=== PATIENT | male | born 1935 | race Caucasian/White ===

== ENCOUNTER 2019-02-15 09:03 | Inpatient (IN) | payer MEDICARE, OTHER ==
[~2019-02-15] VITALS: Ht 167.6 cm; Wt 72.0 kg
[~2019-02-15 09:03] MED LIST: ASPI-611 PO; BUPR150T8 PO; ERGO500014 PO; HYDR12.5 PO; MULT-645 PO; NAPR220C15 PO; OLME40TA13 PO; VITE1000C PO
--- NOTE | 2019-02-15 10:13 | NUR ---
PATIENT STATES HE WAS REFINISHING FURNITURE AND THINKS HE GOT A PIECE OF METAL IN HIS RIGHT INDEX FINGER. REDNESS AND SWELLING NOTED TO BASE OF RIGHT INDEX FINGER. NO ACTIVE DRAINAGE NOTED AT THIS TIME.
[2019-02-15] MEDS ORDERED: vancomycin/NS 1 GM ADD-VANTAGE 250 ML IV ONE (10:45)
[2019-02-15] MEDS ORDERED: LIDOcaine 1% w/epiNEPHrine 1:200,000 30ml vial IM ONE (10:50)
[2019-02-15] MEDS ORDERED: TETanus/Pertussis (Acell)/Diphther VAC/PF (Tdap-Adult) 0.5ml syringe IM ONE (10:50)
[2019-02-15 11:44] LABS: BASOPHILS % (AUTO) 0.5 % (0-1); EOSINOPHILS % (AUTO) 0.4 % (0-6); HEMOGLOBIN 15.1 g/dl (14.0-17.9); LYMPHOCYTES # (AUTO) 0.8 X10'3 (1.1-4.8); MEAN CORPUSCULAR HEMOGLOBIN 32.6 PG (27.0-31.0); MEAN CORPUSCULAR HGB CONC 34.3 g/dL (33.0-36.5); MEAN CORPUSCULAR VOLUME 95.1 FL (78-98); MONOCYTES # (AUTO) 0.7 X10'3 (0-0.9); MONOCYTES % (AUTO) 8.8 % (2-12); NEUTROPHILS # (AUTO) 6.6 X10'3 (1.8-7.7); NEUTROPHILS % (AUTO) 80.3 % (42-75); PLATELET COUNT 201 X10'3 (140-440); RED BLOOD COUNT 4.63 X10'6 (4.70-6.10); RED CELL DISTRIBUTION WIDTH 12.8 % (11.5-14.5); WHITE BLOOD COUNT 8.2 X10'3 (4.5-11.0)
[2019-02-15 11:55] LABS: ALANINE AMINOTRANSFERASE 26 U/L (12-78); ALBUMIN 3.7 G/DL (3.4-5.0); ALBUMIN/GLOBULIN RATIO 1.1 (1.1-1.5); ALKALINE PHOSPHATASE 69 IU/L (46-116); ANION GAP 7 (8-16); ASPARTATE AMINO TRANSFERASE 21 U/L (10-37); BILIRUBIN,TOTAL 0.5 MG/DL (0.1-1.0); BLOOD UREA NITROGEN 19 MG/DL (7-18); BUN/CREATININE RATIO 23.8 (5.4-32.0); CALCIUM 8.7 MG/DL (8.5-10.1); CHLORIDE 102 MMOL/L (99-107); GLUCOSE 113 MG/DL (70-104); POTASSIUM 4.2 MMOL/L (3.5-5.1); SODIUM 136 MMOL/L (135-145); TOTAL CARBON DIOXIDE 26.8 MMOL/L (24-32); eGFR > 90 ML/MIN
[2019-02-15] MEDS ORDERED: potassium CL 10mEq/100ml bag 100 ML IV PRN ×2 (13:30)
[2019-02-15] MEDS ORDERED: potassium Cl 20 mEq SR tablet PO PRN ×2 (13:30)
[2019-02-15] MEDS ORDERED: magnesium 2GM in 50ml NS 50 ML IV PRN (13:30)
[2019-02-15] MEDS ORDERED: mag hydrox/Alum hydrox/simeth 30ml oral suspension PO PRN (13:30)
[2019-02-15] MEDS ORDERED: ondansetron/PF 4mg/2ml inj IV PRN (13:30)
[2019-02-15] MEDS ORDERED: morphine 2 MG/ML inj. syringe IV PRN (13:30)
[2019-02-15] MEDS ORDERED: magnesium Cl slow-release 64mg tablet PO PRN (13:30)
[2019-02-15] MEDS ORDERED: magnesium 4gm in 100ml NS 100 ML IV PRN (13:30)
[2019-02-15] MEDS ORDERED: acetaminophen 325mg tablet PO PRN ×2 (13:30)
[2019-02-15] MEDS ORDERED: PRAV20TA4 PO (13:51)
[2019-02-15] MEDS ORDERED: BUPR150T8 PO (13:51)
[2019-02-15] MEDS ORDERED: MAGN400C PO (13:51)
[2019-02-15] MEDS ORDERED: ASPI81TA52 PO (13:51)
[2019-02-15] MEDS ORDERED: MONT10TA24 PO (13:51)
[2019-02-15] MEDS ORDERED: AMLO5TAB4 PO (13:51)
[2019-02-15] MEDS ORDERED: OLME40TA13 PO (13:51)
--- NOTE | 2019-02-15 14:37 | NUR ---
Patient in room . I have received report from Joy STOKES, in ED and had the opportunity to ask questions and assume patient care.
[2019-02-15 15:15] VITALS: BP 169/78
--- NOTE | 2019-02-15 15:16 | NUR ---
Pt arrived on the floor. Tucked in, provided comfort measures. No c/o pain at this time. Pt is alert, oriented and in good spirits.
[2019-02-15] MEDS: normal saline 1000ml 1,000 ML IV SCH (15:45)
[2019-02-15] MEDS: HYDROcodone/acetaminophen 5mg/325mg tablet PO PRN ×2 (15:45→20:24)
[2019-02-15 18:00] VITALS: BP 158/66
--- NOTE | 2019-02-15 18:20 | NUR ---
Problems reprioritized. Patient report given, questions answered & plan of care reviewed with Barb.
--- NOTE | 2019-02-15 18:29 | NUR ---
Patient in room ORTHO 4013. I have received report from KIKE Delgadillo and had the opportunity to ask questions and assume patient care.
[2019-02-15] MEDS: heparin, porcine 5000 units/ml vial SQ SCH (20:23)
[2019-02-15] MEDS: docusate sod 100mg capsule PO SCH (20:24)
[2019-02-15] MEDS ORDERED: temazepam 15mg capsule PO PRN (21:00)
[2019-02-15 22:00] VITALS: BP 145/71
[2019-02-15] MEDS: vancomycin/NS 1 GM ADD-VANTAGE 250 ML IV SCH (22:53)
[2019-02-16] MEDS: HYDROcodone/acetaminophen 5mg/325mg tablet PO PRN ×4 (03:42→20:38)
--- NOTE | 2019-02-16 06:25 | NUR ---
Problems reprioritized. Patient report given, questions answered & plan of care reviewed with KIKE Kirkland.
[2019-02-16 06:53] LABS: BASOPHILS # (AUTO) 0.1 X10'3 (0-0.2); BASOPHILS % (AUTO) 0.8 % (0-1); EOSINOPHILS # (AUTO) 0.1 X10'3 (0-0.9); EOSINOPHILS % (AUTO) 0.9 % (0-6); HEMATOCRIT 40.3 % (42.0-52.0); HEMOGLOBIN 13.8 g/dl (14.0-17.9); LYMPHOCYTES # (AUTO) 1.1 X10'3 (1.1-4.8); LYMPHOCYTES % (AUTO) 16.5 % (21-51); MEAN CORPUSCULAR HEMOGLOBIN 33.1 PG (27.0-31.0); MEAN CORPUSCULAR HGB CONC 34.3 g/dL (33.0-36.5); MEAN CORPUSCULAR VOLUME 96.6 FL (78-98); MEAN PLATELET VOLUME 8.7 FL (7.4-10.4); MONOCYTES # (AUTO) 0.7 X10'3 (0-0.9); MONOCYTES % (AUTO) 9.9 % (2-12); NEUTROPHILS # (AUTO) 4.7 X10'3 (1.8-7.7); NEUTROPHILS % (AUTO) 71.9 % (42-75); PLATELET COUNT 174 X10'3 (140-440); RED BLOOD COUNT 4.17 X10'6 (4.70-6.10); WHITE BLOOD COUNT 6.6 X10'3 (4.5-11.0)
[2019-02-16 06:59] VITALS: BP 155/74
[2019-02-16 07:00] LABS: ALBUMIN 3.1 G/DL (3.4-5.0); ANION GAP 6 (8-16); BLOOD UREA NITROGEN 15 MG/DL (7-18); BUN/CREATININE RATIO 17.9 (5.4-32.0); CALCIUM 8.3 MG/DL (8.5-10.1); CHLORIDE 105 MMOL/L (99-107); CREATININE 0.84 MG/DL (0.60-1.10); GLUCOSE 94 MG/DL (70-104); MAGNESIUM 1.8 MG/DL (1.5-2.4); SODIUM 139 MMOL/L (135-145); TOTAL CARBON DIOXIDE 27.8 MMOL/L (24-32); eGFR 88 ML/MIN
[2019-02-16] MEDS: K and/or MAG REPLACEMENT MC SCH (07:21)
[2019-02-16] MEDS: docusate sod 100mg capsule PO SCH ×2 (07:34→19:56)
[2019-02-16] MEDS: losartan 50mg tablet PO SCH (07:34)
[2019-02-16] MEDS: HYDROchlorothiazide 12.5mg capsule PO SCH (07:34)
[2019-02-16] MEDS: heparin, porcine 5000 units/ml vial SQ SCH ×2 (07:34→19:56)
[2019-02-16] MEDS: normal saline 1000ml 1,000 ML IV SCH ×2 (09:27→21:05)
[2019-02-16 10:00] VITALS: BP 142/68
[2019-02-16] MEDS: buPROPion SR 150mg tablet PO SCH (10:59)
[2019-02-16] MEDS: montelukast 10mg tablet PO SCH (10:59)
[2019-02-16] MEDS: magnesium oxide 400mg tablet PO SCH (11:00)
[2019-02-16] MEDS: pravastatin 40mg tablet PO SCH (11:01)
[2019-02-16] MEDS: vancomycin/NS 1 GM ADD-VANTAGE 250 ML IV SCH ×2 (11:33→23:02)
[2019-02-16] MEDS ORDERED: ringers solution, lacted 1,000 ML IV ONE (16:22)
[2019-02-16 22:00] VITALS: BP 116/83
[2019-02-16] MEDS ORDERED: VANCOMYCIN LEVEL IV ONE (22:30)
[2019-02-17] VITALS (15 sets, daily range): BP systolic 126–175; BP diastolic 62–99
--- NOTE | 2019-02-17 06:13 | NUR ---
Problems reprioritized. Patient report given, questions answered & plan of care reviewed with Mraita STOKES.
[2019-02-17 06:42] LABS: BASOPHILS % (AUTO) 0.8 % (0-1); EOSINOPHILS # (AUTO) 0.1 X10'3 (0-0.9); EOSINOPHILS % (AUTO) 1.7 % (0-6); HEMATOCRIT 39.6 % (42.0-52.0); HEMOGLOBIN 13.5 g/dl (14.0-17.9); LYMPHOCYTES # (AUTO) 0.8 X10'3 (1.1-4.8); LYMPHOCYTES % (AUTO) 15.1 % (21-51); MEAN CORPUSCULAR HEMOGLOBIN 32.6 PG (27.0-31.0); MEAN CORPUSCULAR HGB CONC 34.1 g/dL (33.0-36.5); MEAN CORPUSCULAR VOLUME 95.8 FL (78-98); MEAN PLATELET VOLUME 8.3 FL (7.4-10.4); MONOCYTES # (AUTO) 0.6 X10'3 (0-0.9); MONOCYTES % (AUTO) 10.5 % (2-12); NEUTROPHILS % (AUTO) 71.9 % (42-75); PLATELET COUNT 164 X10'3 (140-440); RED BLOOD COUNT 4.14 X10'6 (4.70-6.10); RED CELL DISTRIBUTION WIDTH 13.3 % (11.5-14.5); WHITE BLOOD COUNT 5.6 X10'3 (4.5-11.0)
[2019-02-17 07:19] LABS: ALBUMIN 3.1 G/DL (3.4-5.0); ANION GAP 7 (8-16); BLOOD UREA NITROGEN 15 MG/DL (7-18); BUN/CREATININE RATIO 18.1 (5.4-32.0); CALCIUM 8.3 MG/DL (8.5-10.1); CHLORIDE 105 MMOL/L (99-107); CREATININE 0.83 MG/DL (0.60-1.10); GLUCOSE 89 MG/DL (70-104); MAGNESIUM 1.5 MG/DL (1.5-2.4); POTASSIUM 3.7 MMOL/L (3.5-5.1); SODIUM 140 MMOL/L (135-145); TOTAL CARBON DIOXIDE 27.7 MMOL/L (24-32); eGFR 89 ML/MIN
[2019-02-17] MEDS: buPROPion SR 150mg tablet PO SCH (07:37)
[2019-02-17] MEDS: HYDROcodone/acetaminophen 5mg/325mg tablet PO PRN (07:37)
[2019-02-17] MEDS: pravastatin 40mg tablet PO SCH (07:37)
[2019-02-17] MEDS: docusate sod 100mg capsule PO SCH ×2 (07:37→19:25)
[2019-02-17] MEDS: montelukast 10mg tablet PO SCH (07:37)
[2019-02-17] MEDS: losartan 50mg tablet PO SCH (07:38)
[2019-02-17] MEDS: HYDROchlorothiazide 12.5mg capsule PO SCH (07:38)
[2019-02-17] MEDS: heparin, porcine 5000 units/ml vial SQ SCH ×2 (07:42→19:25)
[2019-02-17] MEDS: K and/or MAG REPLACEMENT MC SCH (07:42)
[2019-02-17] MEDS: magnesium oxide 400mg tablet PO SCH (07:42)
[2019-02-17] MEDS: vancomycin/NS 1 GM ADD-VANTAGE 250 ML IV SCH ×2 (11:06→22:11)
[2019-02-17] MEDS ORDERED: MIDAZolam 5mg/5ml vial ONE (14:08)
[2019-02-17] MEDS ORDERED: ringers solution, lacted 1,000 ML IV SCH (14:30)
[2019-02-17] MEDS ORDERED: labetalol 20mg/4ml (5mg/ml) syringe IV PRN (14:30)
[2019-02-17] MEDS ORDERED: fentaNYL/PF 50MCG/1 ML 2ML syringe IV PRN ×2 (14:30)
[2019-02-17] MEDS ORDERED: ondansetron/PF 4mg/2ml inj IV PRN (14:30)
[2019-02-17] MEDS ORDERED: morphine 4 MG/ML inj SYRINge IV PRN ×2 (14:30)
[2019-02-17] MEDS ORDERED: hydrALAZINE 20mg/ml inj. IV PRN (14:30)
--- NOTE | 2019-02-17 14:43 | NUR ---
Received from OR via ORTHO BED WITH NEAUGUSTUS, accompanied by Anesthesiologist JAI and report given by Anesthesiolgist. PATIENT WITH VSS. 20G PIV IN LEFT UE RUNNING NS AT 100. ANALIA AND GAUZE DRESSING TO RIGHT HAND AND INDEX FINGER. NO DRAINAGE PRESENT. VSS. Addendum: 02/17/19 at 1455 by Nash Burton RN, RN Amended: Links added.
--- NOTE | 2019-02-17 15:16 | NUR ---
PACU BG OF 74. ADMINISTERED ONE APPLE JUICE. PATIENT IS NOT DIABETIC. Addendum: 02/17/19 at 1539 by Nash Burton RN, RN Amended: Links added.
--- NOTE | 2019-02-17 15:23 | NUR ---
ALL CRITERIA FOR TRANSFER TO THE FLOOR HAS BEEN ACHIEVED. VSS. BED LOW, CALL LIGHT AND VS. SET IN PLACE. RN PRESENT TO ACCEPT CARE. PATIENT RESTING COMFORTABLY IN BED. BELONGINGS SENT WITH PATIENT. DRESSINGS CDI. FAMILY IN BEDROOM AWAITING PATIENT. PCT PRESENT TO ASSIST IN SET UP. Addendum: 02/17/19 at 1539 by Nash Burton RN RN Amended: Links added.
[2019-02-17] MEDS: normal saline 1000ml 1,000 ML IV SCH (19:35)
[2019-02-18 02:00] VITALS: BP 156/63
[2019-02-18] MEDS: HYDROcodone/acetaminophen 5mg/325mg tablet PO PRN ×2 (04:32→08:26)
[2019-02-18 06:05] LABS: BASOPHILS % (AUTO) 0.7 % (0-1); EOSINOPHILS % (AUTO) 0.6 % (0-6); HEMATOCRIT 40.2 % (42.0-52.0); HEMOGLOBIN 13.9 g/dl (14.0-17.9); LYMPHOCYTES # (AUTO) 0.8 X10'3 (1.1-4.8); LYMPHOCYTES % (AUTO) 12.9 % (21-51); MEAN CORPUSCULAR HGB CONC 34.5 g/dL (33.0-36.5); MEAN CORPUSCULAR VOLUME 95.6 FL (78-98); MEAN PLATELET VOLUME 8.1 FL (7.4-10.4); MONOCYTES # (AUTO) 0.7 X10'3 (0-0.9); MONOCYTES % (AUTO) 11.4 % (2-12); NEUTROPHILS # (AUTO) 4.5 X10'3 (1.8-7.7); NEUTROPHILS % (AUTO) 74.4 % (42-75); PLATELET COUNT 182 X10'3 (140-440); RED BLOOD COUNT 4.21 X10'6 (4.70-6.10)
--- NOTE | 2019-02-18 06:18 | NUR ---
Problems reprioritized. Patient report given, questions answered & plan of care reviewed with Marita STOKES.
[2019-02-18 06:23] LABS: ALBUMIN 3.3 G/DL (3.4-5.0); ANION GAP 9 (8-16); BLOOD UREA NITROGEN 13 MG/DL (7-18); CALCIUM 8.7 MG/DL (8.5-10.1); CHLORIDE 103 MMOL/L (99-107); CREATININE 0.93 MG/DL (0.60-1.10); GLUCOSE 106 MG/DL (70-104); MAGNESIUM 1.6 MG/DL (1.5-2.4); POTASSIUM 3.9 MMOL/L (3.5-5.1); SODIUM 138 MMOL/L (135-145); TOTAL CARBON DIOXIDE 26.1 MMOL/L (24-32); eGFR 78 ML/MIN
[2019-02-18 07:26] VITALS: BP 162/78
[2019-02-18] MEDS: K and/or MAG REPLACEMENT MC SCH (08:00)
[2019-02-18] MEDS: montelukast 10mg tablet PO SCH (08:26)
[2019-02-18] MEDS: pravastatin 40mg tablet PO SCH (08:26)
[2019-02-18] MEDS: buPROPion SR 150mg tablet PO SCH (08:26)
[2019-02-18] MEDS: docusate sod 100mg capsule PO SCH (08:26)
[2019-02-18] MEDS: HYDROchlorothiazide 12.5mg capsule PO SCH (08:26)
[2019-02-18] MEDS: magnesium oxide 400mg tablet PO SCH (08:26)
[2019-02-18] MEDS: heparin, porcine 5000 units/ml vial SQ SCH (08:27)
[2019-02-18] MEDS: losartan 50mg tablet PO SCH (08:27)
[2019-02-18 10:53] VITALS: BP 162/67
[2019-02-18] MEDS ORDERED: VANCOmycin 1250MG/NS 250ml Bag 250 ML IV SCH (11:00)
[2019-02-18] MEDS ORDERED: DOXY100C2 PO (11:28)
[2019-02-19] MEDS ORDERED: VANCOMYCIN LEVEL IV ONE (22:30)
== END 2019-02-18 13:15 | disposition hospice, home (50) | DRG 580 ==
LOC: ER 09:03 → ORTHO 4S 15:08 → CMPBEDREQ 02-17 19:57
PROVIDERS: ADMIT Internal Medicine; ATTEND Internal Medicine
PROC: 0JBJ0ZZ Excision of Right Hand Subcutaneous Tissue and Fascia, Open Approach (ICD-10-PCS; 2019-02-17)
PROC: 0JCJ0ZZ Extirpation of Matter from Right Hand Subcutaneous Tissue and Fascia, Open Approach (ICD-10-PCS; principal; 2019-02-17 14:12)
DX: S60.450A Superficial foreign body of right index finger, initial encounter (principal); L02.511 Cutaneous abscess of right hand; G89.29 Other chronic pain; I10 Essential (primary) hypertension; M54.5 Low back pain; L08.9 Local infection of the skin and subcutaneous tissue, unspecified; X58.XXXA Exposure to other specified factors, initial encounter; I25.10 Atherosclerotic heart disease of native coronary artery without angina pectoris; Z95.1 Presence of aortocoronary bypass graft; Z79.82 Long term (current) use of aspirin; Z79.899 Other long term (current) drug therapy; Y93.89 Activity, other specified; Y92.89 Other specified places as the place of occurrence of the external cause; Y99.8 Other external cause status
CPT/HCPCS: 36415; 73140; 76000; 80048; 80053; 80202; 82948; 83605; 83735; 85025; 87040; 87070; 87075; 87077; 87081; 87186; 90471; 96365; 99285; A6222; A6449; A7000; G0378; J1644; J2250; J2270; J3370; J7030; J7120

== ENCOUNTER 2019-03-04 15:51 | Observation (INO) | payer MEDICARE, OTHER ==
[~2019-03-04] VITALS: Ht 170.2 cm; Wt 73.8 kg
[~2019-03-04 15:51] MED LIST changes: +AMLO5TAB4 PO; -ASPI-611 PO; +ASPI81TA52 PO; +DOXY100C2 PO; -ERGO500014 PO; -HYDR12.5 PO; +MAGN400C PO; +MONT10TA24 PO; -MULT-645 PO; -NAPR220C15 PO; +PRAV20TA4 PO; -VITE1000C PO
[2019-03-04 16:24] LABS: BASOPHILS % (AUTO) 0.3 % (0-1); EOSINOPHILS % (AUTO) 0.4 % (0-6); HEMATOCRIT 44.5 % (42.0-52.0); HEMOGLOBIN 14.9 g/dl (14.0-17.9); LYMPHOCYTES # (AUTO) 0.7 X10'3 (1.1-4.8); LYMPHOCYTES % (AUTO) 6.8 % (21-51); MEAN CORPUSCULAR HEMOGLOBIN 32.8 PG (27.0-31.0); MEAN CORPUSCULAR HGB CONC 33.5 g/dL (33.0-36.5); MEAN CORPUSCULAR VOLUME 97.8 FL (78-98); MONOCYTES # (AUTO) 1.1 X10'3 (0-0.9); MONOCYTES % (AUTO) 10.3 % (2-12); NEUTROPHILS # (AUTO) 8.6 X10'3 (1.8-7.7); NEUTROPHILS % (AUTO) 82.2 % (42-75); PLATELET COUNT 254 X10'3 (140-440); RED BLOOD COUNT 4.55 X10'6 (4.70-6.10); RED CELL DISTRIBUTION WIDTH 13.3 % (11.5-14.5); WHITE BLOOD COUNT 10.4 X10'3 (4.5-11.0)
[2019-03-04] MEDS ORDERED: normal saline 1000ML IV soln IVB ONE (16:25)
[2019-03-04 16:29] LABS: PARTIAL THROMBOPLASTIN TIME 26 SECONDS (22-32)
[2019-03-04 16:32] LABS: ALANINE AMINOTRANSFERASE 25 U/L (12-78); ALBUMIN 3.6 G/DL (3.4-5.0); ALBUMIN/GLOBULIN RATIO 1.1 (1.1-1.5); ALKALINE PHOSPHATASE 65 IU/L (46-116); ANION GAP 11 (8-16); ASPARTATE AMINO TRANSFERASE 22 U/L (10-37); BILIRUBIN,TOTAL 0.5 MG/DL (0.1-1.0); BLOOD UREA NITROGEN 19 MG/DL (7-18); BUN/CREATININE RATIO 14.6 (5.4-32.0); CALCIUM 8.4 MG/DL (8.5-10.1); CHLORIDE 97 MMOL/L (99-107); GLUCOSE 99 MG/DL (70-104); POTASSIUM 3.9 MMOL/L (3.5-5.1); SODIUM 136 MMOL/L (135-145); TOTAL CARBON DIOXIDE 28.1 MMOL/L (24-32); TOTAL PROTEIN 6.9 G/DL (6.4-8.2); eGFR 53 ML/MIN
--- NOTE | 2019-03-04 17:32 | NUR ---
pharmacist at bedside going over medication.pt family at bedside.
[2019-03-04] MEDS ORDERED: MULT-933 PO (17:36)
[2019-03-04] MEDS ORDERED: CHOL100046 PO (17:36)
[2019-03-04] MEDS ORDERED: normal saline 1000ML IV soln IV ONE (19:10)
--- NOTE | 2019-03-04 19:36 | NUR ---
Pt with stable vs, no pain. Daughter at bedside. Awaiting Hospitalist for admission. Med Rec completed. Just voided in urinal , independantly.
--- NOTE | 2019-03-04 20:12 | NUR ---
dr vega at bedside doing assessment.
--- NOTE | 2019-03-04 20:25 | NUR ---
pt vitals updated ,daughter at bedside ,pt iv fluid infusing as per md orders,pt urinate 420 ml of urine.
[2019-03-04] MEDS ORDERED: mag hydrox/Alum hydrox/simeth 30ml oral suspension PO PRN (20:30)
[2019-03-04] MEDS ORDERED: ondansetron/PF 4mg/2ml inj IV PRN (20:30)
[2019-03-04] MEDS ORDERED: HYDROcodone/acetaminophen 5mg/325mg tablet PO PRN (20:30)
[2019-03-04] MEDS ORDERED: acetaminophen 325mg tablet PO PRN ×2 (20:30)
[2019-03-04] MEDS ORDERED: magnesium hydroxide 30ml (MOM) UD suspension PO PRN (20:30)
--- NOTE | 2019-03-04 21:18 | NUR ---
Patient in room . I have received report from Radha STOKES and had the opportunity to ask questions and assume patient care.
[2019-03-04] MEDS: normal saline 1000ml 1,000 ML IV SCH (21:24)
[2019-03-04 21:47] VITALS: BP 140/61
[2019-03-05 03:00] VITALS: BP 126/59
[2019-03-05 04:58] LABS: BASOPHILS % (AUTO) 0.3 % (0-1); EOSINOPHILS # (AUTO) 0.1 X10'3 (0-0.9); EOSINOPHILS % (AUTO) 1.4 % (0-6); HEMATOCRIT 37.7 % (42.0-52.0); HEMOGLOBIN 12.8 g/dl (14.0-17.9); MEAN CORPUSCULAR HEMOGLOBIN 33.2 PG (27.0-31.0); MEAN CORPUSCULAR VOLUME 97.8 FL (78-98); MEAN PLATELET VOLUME 8.1 FL (7.4-10.4); MONOCYTES # (AUTO) 0.8 X10'3 (0-0.9); MONOCYTES % (AUTO) 9.8 % (2-12); NEUTROPHILS # (AUTO) 6.4 X10'3 (1.8-7.7); NEUTROPHILS % (AUTO) 76.5 % (42-75); PLATELET COUNT 192 X10'3 (140-440); RED BLOOD COUNT 3.85 X10'6 (4.70-6.10); RED CELL DISTRIBUTION WIDTH 12.9 % (11.5-14.5); WHITE BLOOD COUNT 8.3 X10'3 (4.5-11.0)
[2019-03-05 05:24] LABS: ALBUMIN 2.8 G/DL (3.4-5.0); ANION GAP 6 (8-16); BLOOD UREA NITROGEN 10 MG/DL (7-18); BUN/CREATININE RATIO 11.9 (5.4-32.0); CALCIUM 7.8 MG/DL (8.5-10.1); CHLORIDE 107 MMOL/L (99-107); CREATININE 0.84 MG/DL (0.60-1.10); GLUCOSE 94 MG/DL (70-104); POTASSIUM 4.1 MMOL/L (3.5-5.1); SODIUM 141 MMOL/L (135-145); TOTAL CARBON DIOXIDE 28.3 MMOL/L (24-32); eGFR 88 ML/MIN
--- NOTE | 2019-03-05 06:24 | NUR ---
Problems reprioritized. Patient report given, questions answered & plan of care reviewed with Valencia STOKES.
--- NOTE | 2019-03-05 06:36 | NUR ---
Patient in room PCU 3017. I have received report from KIKE Maciel and had the opportunity to ask questions and assume patient care. Patient currently resting in bed, bed locked and low, call light in reach, no acute distress, will continue to monitor.
[2019-03-05] MEDS: normal saline 1000ml 1,000 ML IV SCH (06:52)
[2019-03-05] MEDS ORDERED: losartan 50mg tablet PO SCH (08:00)
[2019-03-05] MEDS ORDERED: pravastatin 40mg tablet PO SCH (08:00)
[2019-03-05] MEDS ORDERED: aspirin 81mg tablet.DR PO SCH (08:00)
[2019-03-05] MEDS ORDERED: montelukast 10mg tablet PO SCH (08:00)
[2019-03-05] MEDS ORDERED: amLODIPine 5mg tablet PO SCH (08:00)
[2019-03-05] MEDS ORDERED: magnesium oxide 400mg tablet PO SCH (08:00)
[2019-03-05] MEDS ORDERED: enoxaparin 30mg/0.3ml syringe SUBCUT SCH (08:00)
[2019-03-05] MEDS ORDERED: multivitamins, therapeutics tablet PO SCH (08:00)
[2019-03-05] MEDS ORDERED: vitamin D (cholecalciferol) 1,000 unit tablet PO SCH (08:00)
[2019-03-05] MEDS ORDERED: buPROPion SR 150mg tablet PO SCH (08:00)
--- NOTE | 2019-03-05 10:25 | NUR ---
PAGER ID: [phone] MESSAGE: KIKE [place], [id number], Luis, no orthostatic drop in BP, but BP is elevated, mostly 170s/80s. No PRN BP meds are ordered, patient states he is not in pain or having anxiety. He is a patient of Dr. Heredia's normally.
[2019-03-05 11:12] VITALS: BP_SYST 168; BP_SYST 174; BP_DIAS 76; BP_DIAS 77; BP_DIAS 81
--- NOTE | 2019-03-05 12:30 | NUR ---
Received orders for patient discharge, patient belongings gathered, patient verbalized understanding of discharge instructions. IV removed, catheter tip intact, hemostasis achieved, telemetry removed. Patient ambualted >300ft prior to discharge with no issues. Patient was discharged home with family and will follow up with primary care doctor tomorrow. Patient is stable at time of discharge.
== END 2019-03-05 13:02 | disposition home health service (06) ==
LOC: ER 15:52 → PCU 3S 22:15 → CMPBEDREQ 03-05 03:55
PROVIDERS: ADMIT Hospitalist; ATTEND Internal Medicine
DX: R55 Syncope and collapse (principal); E86.0 Dehydration; I10 Essential (primary) hypertension; I25.10 Atherosclerotic heart disease of native coronary artery without angina pectoris; Z95.1 Presence of aortocoronary bypass graft; R42 Dizziness and giddiness; N17.9 Acute kidney failure, unspecified; F32.9 Major depressive disorder, single episode, unspecified; I65.23 Occlusion and stenosis of bilateral carotid arteries; Z79.899 Other long term (current) drug therapy; Z87.891 Personal history of nicotine dependence
CPT/HCPCS: 36415; 70450; 71045; 80048; 80053; 83605; 84484; 85025; 85610; 85730; 87040; 87081; 93005; 93306; 96360; 96361; 96372; 97162; 97530; 99284; G0378; J1650; J7030

== ENCOUNTER 2021-05-25 03:52 | Inpatient (IN) | payer MEDICARE, OTHER ==
[~2021-05-25] VITALS: Ht 170.2 cm; Wt 75.7 kg
[~2021-05-25 03:52] MED LIST changes: +CHOL100046 PO; -DOXY100C2 PO; +MONT-40 PO; -MONT10TA24 PO; +MULT-933 PO
[2021-05-25 04:10] VITALS: BP 154/71
[2021-05-25] MEDS ORDERED: morphine 2 MG/ML inj. syringe IV PRN ×2 (05:30)
[2021-05-25] MEDS ORDERED: magnesium Cl slow-release 64mg tablet PO PRN (05:30)
[2021-05-25] MEDS ORDERED: ondansetron/PF 4mg/2ml inj IV PRN (05:30)
[2021-05-25] MEDS ORDERED: HYDROcodone/acetaminophen 5mg/325mg tablet PO PRN (05:30)
[2021-05-25] MEDS ORDERED: magnesium hydroxide 30ml (MOM) UD suspension PO PRN (05:30)
[2021-05-25] MEDS ORDERED: potassium CL 10mEq/100ml bag 100 ML IV PRN (05:30)
[2021-05-25] MEDS ORDERED: magnesium 4gm in 100ml NS 100 ML IV PRN (05:30)
[2021-05-25] MEDS ORDERED: potassium Cl 20 mEq SR tablet PO PRN (05:30)
[2021-05-25] MEDS ORDERED: magnesium 2GM in 50ml NS 50 ML IV PRN (05:30)
[2021-05-25] MEDS ORDERED: mag hydrox/Alum hydrox/simeth 30ml oral suspension PO PRN (05:30)
[2021-05-25] MEDS ORDERED: acetaminophen 325mg tablet PO PRN ×2 (05:30)
--- NOTE | 2021-05-25 06:45 | NUR ---
Patient in room OBDULIA 357B. I have received report from KIKE MADISON and had the opportunity to ask questions and assume patient care.
--- NOTE | 2021-05-25 06:48 | NUR ---
Problems reprioritized. Patient report given, questions answered & plan of care reviewed with DAYANNA. Addendum: 05/25/21 at 0649 by Chas Hughes RN Amended: Links added.
[2021-05-25 07:00] VITALS: BP 122/85
[2021-05-25 07:57] LABS: MAGNESIUM 1.7 MG/DL (1.5-2.4); POTASSIUM 3.5 MMOL/L (3.5-5.1)
[2021-05-25] MEDS: K and/or MAG REPLACEMENT MC SCH ×2 (08:00→20:00)
[2021-05-25] MEDS: furosemide 20 MG/2 ML vial IV SCH ×2 (08:41→20:54)
[2021-05-25] MEDS: docusate sod 100mg capsule PO SCH ×2 (08:43→20:55)
[2021-05-25] MEDS: levoFLOXACIN-Levaquin 750MG/D5 150 ML IV SCH (08:44)
[2021-05-25] MEDS ORDERED: FLU VACC QS2021-22(6MOS UP)/PF 60 MCG/0.5 ML SYRINGE IM ONE (10:00)
[2021-05-25 11:00] VITALS: BP 139/58
[2021-05-25] MEDS ORDERED: iohexol 350MG/ML 100ml bottle IV ONE (11:11)
[2021-05-25 18:00] VITALS: BP 145/75
[2021-05-25] MEDS ORDERED: benzonatate 100mg capsule PO PRN (19:00)
--- NOTE | 2021-05-25 19:06 | NUR ---
Problems reprioritized. Patient report given, questions answered & plan of care reviewed with KIKE DAMON.
[2021-05-25] MEDS: guaiFENesin 100mg/DM 10mg oral syrup 5 ML CUP PO PRN (20:55)
[2021-05-26] VITALS: BP 121/52
[2021-05-26 06:00] VITALS: BP 124/47
--- NOTE | 2021-05-26 06:21 | NUR ---
report to jazmin tafoya. to f/u on med rec and wound consult
[2021-05-26 06:55] LABS: BASOPHILS % (AUTO) 0.3 % (0-1); EOSINOPHILS % (AUTO) 0.1 % (0-6); HEMATOCRIT 37.2 % (42.0-52.0); HEMOGLOBIN 12.6 g/dl (14.0-17.9); LYMPHOCYTES # (AUTO) 0.6 X10'3 (1.1-4.8); MEAN CORPUSCULAR HEMOGLOBIN 31.8 PG (27.0-31.0); MEAN CORPUSCULAR HGB CONC 33.8 g/dL (33.0-36.5); MEAN CORPUSCULAR VOLUME 94.2 FL (78-98); MEAN PLATELET VOLUME 8.1 FL (7.4-10.4); MONOCYTES # (AUTO) 1.3 X10'3 (0-0.9); MONOCYTES % (AUTO) 9.9 % (2-12); NEUTROPHILS # (AUTO) 10.8 X10'3 (1.8-7.7); NEUTROPHILS % (AUTO) 84.7 % (42-75); PLATELET COUNT 203 X10'3 (140-440); RED BLOOD COUNT 3.95 X10'6 (4.70-6.10); RED CELL DISTRIBUTION WIDTH 12.5 % (11.5-14.5); WHITE BLOOD COUNT 12.8 X10'3 (4.5-11.0)
[2021-05-26 07:00] VITALS: BP 133/74
--- NOTE | 2021-05-26 07:01 | NUR ---
Patient in room OBDULIA 357. I have received report from KIKE Salguero and had the opportunity to ask questions and assume patient care.
[2021-05-26 07:40] LABS: ALBUMIN 2.7 G/DL (3.4-5.0); ANION GAP 10 (8-16); BLOOD UREA NITROGEN 23 MG/DL (7-18); BUN/CREATININE RATIO 23.5 (5.4-32.0); CALCIUM 8.5 MG/DL (8.5-10.1); CHLORIDE 99 MMOL/L (99-107); CREATININE 0.98 MG/DL (0.60-1.10); GLUCOSE 109 MG/DL (70-104); POTASSIUM 3.3 MMOL/L (3.5-5.1); SODIUM 135 MMOL/L (135-145); TOTAL CARBON DIOXIDE 26.5 MMOL/L (24-32); eGFR 73 ML/MIN
[2021-05-26] MEDS: furosemide 20 MG/2 ML vial IV SCH ×2 (08:06→19:54)
[2021-05-26] MEDS: levoFLOXACIN-Levaquin 750MG/D5 150 ML IV SCH (08:13)
[2021-05-26] MEDS: docusate sod 100mg capsule PO SCH ×2 (08:13→19:59)
[2021-05-26] MEDS: amLODIPine 5mg tablet PO SCH (08:26)
[2021-05-26] MEDS: magnesium oxide 400mg tablet PO SCH (08:26)
[2021-05-26] MEDS: K and/or MAG REPLACEMENT MC SCH ×2 (08:50→20:00)
[2021-05-26] MEDS: potassium Cl 20 mEq SR tablet PO PRN ×3 (08:51→19:53)
[2021-05-26] MEDS: losartan 50mg tablet PO SCH (08:51)
[2021-05-26] MEDS: multivitamins, therapeutics tablet PO SCH (08:51)
[2021-05-26] MEDS ORDERED: FLU VACC QS2021-22(6MOS UP)/PF 60 MCG/0.5 ML SYRINGE IM ONE (09:00)
[2021-05-26 11:00] VITALS: BP 126/56
[2021-05-26 18:00] VITALS: BP 138/67
--- NOTE | 2021-05-26 18:39 | NUR ---
Problems reprioritized. Patient report given, questions answered & plan of care reviewed with MAINE Salguero.
[2021-05-26] MEDS: lactobacillus rhamnosus 10,000 MMU CELLS/CAPSULE PO SCH (19:59)
[2021-05-26] MEDS: guaiFENesin 100mg/DM 10mg oral syrup 5 ML CUP PO PRN (20:06)
[2021-05-27] VITALS: BP 118/56
[2021-05-27 06:36] LABS: ALBUMIN 2.5 G/DL (3.4-5.0); ANION GAP 4 (8-16); BLOOD UREA NITROGEN 28 MG/DL (7-18); CALCIUM 8.5 MG/DL (8.5-10.1); CHLORIDE 99 MMOL/L (99-107); CREATININE 1.22 MG/DL (0.60-1.10); GLUCOSE 111 MG/DL (70-104); POTASSIUM 3.9 MMOL/L (3.5-5.1); SODIUM 134 MMOL/L (135-145); TOTAL CARBON DIOXIDE 30.7 MMOL/L (24-32); eGFR 57 ML/MIN
--- NOTE | 2021-05-27 06:46 | NUR ---
Patient in room OBDULIA 357. I have received report from Alicia STOKES Traveler and had the opportunity to ask questions and assume patient care.
[2021-05-27 06:47] LABS: BASOPHILS % (AUTO) 0.5 % (0-1); EOSINOPHILS % (AUTO) 0.6 % (0-6); HEMATOCRIT 37.5 % (42.0-52.0); HEMOGLOBIN 13.1 g/dl (14.0-17.9); LYMPHOCYTES # (AUTO) 0.7 X10'3 (1.1-4.8); LYMPHOCYTES % (AUTO) 9.5 % (21-51); MEAN CORPUSCULAR VOLUME 94.3 FL (78-98); MEAN PLATELET VOLUME 8.6 FL (7.4-10.4); MONOCYTES % (AUTO) 14.8 % (2-12); NEUTROPHILS # (AUTO) 5.2 X10'3 (1.8-7.7); NEUTROPHILS % (AUTO) 74.6 % (42-75); PLATELET COUNT 211 X10'3 (140-440); RED BLOOD COUNT 3.97 X10'6 (4.70-6.10); RED CELL DISTRIBUTION WIDTH 12.1 % (11.5-14.5)
[2021-05-27 07:00] VITALS: BP 138/50
[2021-05-27] MEDS: losartan 50mg tablet PO SCH (08:00)
[2021-05-27] MEDS: amLODIPine 5mg tablet PO SCH (08:00)
[2021-05-27] MEDS ORDERED: buPROPion SR 150mg tablet PO SCH (08:00)
[2021-05-27] MEDS ORDERED: atorvastatin 10mg tablet PO SCH (08:00)
[2021-05-27] MEDS: K and/or MAG REPLACEMENT MC SCH (08:00)
[2021-05-27] MEDS ORDERED: cholecalciferol (vitamin D3) 1,000 unit (25mcg) tablet PO SCH (08:00)
[2021-05-27] MEDS: lactobacillus rhamnosus 10,000 MMU CELLS/CAPSULE PO SCH (08:43)
[2021-05-27] MEDS: levoFLOXACIN-Levaquin 750MG/D5 150 ML IV SCH (08:43)
[2021-05-27] MEDS: docusate sod 100mg capsule PO SCH (08:44)
[2021-05-27] MEDS: multivitamins, therapeutics tablet PO SCH (08:44)
[2021-05-27] MEDS: magnesium oxide 400mg tablet PO SCH (08:44)
[2021-05-27] MEDS: furosemide 20 MG/2 ML vial IV SCH (08:46)
[2021-05-27] MEDS ORDERED: guaiFENesin/DM 10ml UD oral syrup PO PRN (10:02)
[2021-05-27] MEDS ORDERED: LEVO500T90 PO (10:52)
[2021-05-27] MEDS ORDERED: FURO40TA4 PO (10:52)
[2021-05-27] MEDS ORDERED: POTA10TA37 PO (10:52)
--- NOTE | 2021-05-27 11:47 | NUR ---
O2 Sat at rest on room air:_87__% If below 89%: Recovery O2 Sat at rest on _2__LPM:__95_%:___% via___NC (mask/nasal cannula, etc..) No further documentation is necessary. If O2 Sat did not drop below 89% on room air,ambulate patient on room air. O2 Sat while ambulating on room air:___% Recovery O2 Sat while ambulating on ___LPM:___% No further documentation is necessary. If patient does not drop below 89% while ambulating, he/she does not qualify for home O2.
[2021-05-27 12:00] VITALS: BP 130/79
--- NOTE | 2021-05-27 14:25 | NUR ---
PAGER ID: [phone] MESSAGE: Jacob Smith#[phone]- Pt being DC, son is here, pt is nauseous..NO IV, can I get a 1x dose PO Zofran please. Thank you. Ingrid Jacob [phone]
[2021-05-27] MEDS ORDERED: ondansetron 4mg rapidly disintigrating tab PO ONE (14:35)
--- NOTE | 2021-05-27 15:54 | NUR ---
WOUND INFECTION EDUCATION PROVIDED BY WOUND CARE 1. Patient instructed to call their primary doctor, or go the ED immediately if any of the following symptoms occur: * Increased pain in wound * Increase in drainage from the wound * Redness in the skin surrounding the wound * Warmth in the skin surrounding the wound * Bleeding from the wound * Temperature of 101 or greater 2. If any of these occur while in the hospital tell a nurse immediately. PRESSURE ULCER EDUCATION: DEFINITION: A pressure ulcer is an area of skin that breaks down when you stay in one position too long. The constant pressure against the skin reduces the blood flow to that area and the affected tissue dies. CAUSES: "Being bedridden or in a wheelchair "Fragile skin "Having a chronic condition, such as diabetes or vascular disease "Inability to move certain parts of your body without assistance "Older age "Incontinence of urine or stool SYMPTOMS: "A reddened area that DOES NOT turn white when pressed on - this can be the beginning of a pressure ulcer "A blister, deep sore or a crater - these can be advanced pressure ulcers FIRST AID: "Relieve the pressure on this area "Keep the area clean and dry "Call your primary doctor if you see any of the above symptoms "DO NOT massage the area "DO NOT use a donut shaped or ring shaped pillow- these actually interfere with the blood flow and cause complications PREVENTION: "Check for pressure ulcers everyday "Change position at least every two hours to relieve pressure "Use items that help relieve pressure- pillows, sheepskin, foam padding, and powders. "Keep skin clean and dry "Eat healthy well balanced meals "Exercise daily IF YOU SEE ANY OF THESE SYMPTOMS WHILE IN THE HOSPITAL - TELL YOUR NURSE IMMEDIATELY. IF YOU SEE ANY OF THESE SYMPTOMS WHILE AT HOME OR HAVE ANY QUESTIONS OR CONCERNS ABOUT PRESSURE ULCERS - CALL YOUR PRIMARY DOCTOR IMMEDIATELY. Addendum: 05/27/21 at 1554 by Alycia Grissom RN Amended: Links added.
[2021-05-29] MEDS ORDERED: levoFLOXACIN-Levaquin 750MG/D5 150 ML IV SCH (08:00)
== END 2021-05-27 15:07 | disposition home health service (06) | DRG 189 ==
LOC: UNDOADMIN 03:52 → SUR 3N 03:52
PROVIDERS: ADMIT Internal Medicine; ATTEND Family Medicine
PROC: B32T1ZZ Computerized Tomography (CT Scan) of Left Pulmonary Artery using Low Osmolar Contrast (ICD-10-PCS; principal; 2021-05-25)
PROC: B3201ZZ Computerized Tomography (CT Scan) of Thoracic Aorta using Low Osmolar Contrast (ICD-10-PCS; 2021-05-25)
PROC: B32S1ZZ Computerized Tomography (CT Scan) of Right Pulmonary Artery using Low Osmolar Contrast (ICD-10-PCS; 2021-05-25)
DX: J96.01 Acute respiratory failure with hypoxia (principal); I50.33 Acute on chronic diastolic (congestive) heart failure; F32.A Depression, unspecified; J20.9 Acute bronchitis, unspecified; E78.5 Hyperlipidemia, unspecified; I11.0 Hypertensive heart disease with heart failure; Z95.1 Presence of aortocoronary bypass graft
CPT/HCPCS: 36415; 71275; 80048; 83735; 83880; 84132; 84145; 84484; 85025; 87081; 93306; 97110; 97161; 97530; G0378; J1940; J1956; J2405; Q9967

== ENCOUNTER 2022-12-21 12:59 | Outpatient (CLI) | payer MEDICARE, OTHER ==
[~2022-12-21 12:59] MED LIST changes: -ASPI81TA52 PO; -MONT-40 PO; -OLME40TA13 PO; +OLME40TA70 PO; +POTA-206 PO
== END 2022-12-21 23:59 | disposition home or self-care (01) ==
LOC: RAD 12:59
PROVIDERS: ATTEND Family Medicine
DX: R05.9 Cough, unspecified (principal); R09.89 Other specified symptoms and signs involving the circulatory and respiratory systems
CPT/HCPCS: 71250

== ENCOUNTER 2023-06-21 07:57 | Emergency (ER) | payer MEDICARE, OTHER ==
[~2023-06-21] VITALS: Ht 170.2 cm; Wt 70.4 kg
[2023-06-21 08:03] VITALS: TEMP 98.2
[2023-06-21] MEDS ORDERED: methylPREDNISolone sod succ 125mg/2ml vial IV ONE (10:05)
[2023-06-21] MEDS ORDERED: ipratropium/albuterol 3ml nebule NEB ONE (10:05)
[2023-06-21 10:23] VITALS: PULSE 77; RESP 29
[2023-06-21 10:27] LABS: BASOPHILS # (AUTO) 0.1 X10'3 (0-0.2); BASOPHILS % (AUTO) 0.5 % (0-1); EOSINOPHILS # (AUTO) 0.8 X10'3 (0-0.9); EOSINOPHILS % (AUTO) 6.7 % (0-6); HEMATOCRIT 48.8 % (42.0-52.0); HEMOGLOBIN 16.5 g/dl (14.0-17.9); LYMPHOCYTES # (AUTO) 0.9 X10'3 (1.1-4.8); LYMPHOCYTES % (AUTO) 7.8 % (21-51); MEAN CORPUSCULAR HEMOGLOBIN 32.2 PG (27.0-31.0); MEAN CORPUSCULAR HGB CONC 33.9 g/dL (33.0-36.5); MEAN CORPUSCULAR VOLUME 95.2 FL (78-98); MEAN PLATELET VOLUME 8.5 FL (7.4-10.4); MONOCYTES % (AUTO) 8.4 % (2-12); NEUTROPHILS # (AUTO) 8.6 X10'3 (1.8-7.7); NEUTROPHILS % (AUTO) 76.6 % (42-75); PLATELET COUNT 253 X10'3 (140-440); RED BLOOD COUNT 5.13 X10'6 (4.70-6.10); RED CELL DISTRIBUTION WIDTH 12.8 % (11.5-14.5); WHITE BLOOD COUNT 11.3 X10'3 (4.5-11.0)
[2023-06-21 10:29] VITALS: PULSE 79; RESP 20; O2SAT 99
[2023-06-21 10:39] LABS: APTT 25 SECONDS (22-32)
[2023-06-21 10:51] LABS: PRO BRAIN NATRIURETIC PEPTIDE 86 PG/ML (0-450)
[2023-06-21 10:55] LABS: ALANINE AMINOTRANSFERASE 194 U/L (12-78); ALKALINE PHOSPHATASE 219 IU/L (46-116); ANION GAP 15 (8-16); ASPARTATE AMINO TRANSFERASE 118 U/L (10-37); BILIRUBIN,TOTAL 1.3 MG/DL (0.1-1.0); BLOOD UREA NITROGEN 23 MG/DL (7-18); BUN/CREATININE RATIO 18.3 (10.0-20.0); CALCIUM 9.2 MG/DL (8.5-10.1); CHLORIDE 95 MMOL/L (99-107); CREATININE 1.26 MG/DL (0.60-1.10); GLUCOSE 107 MG/DL (70-104); POTASSIUM 4.2 MMOL/L (3.5-5.1); PRO BRAIN NATRIURETIC PEPTIDE 90 PG/ML (0-450); SODIUM 133 MMOL/L (135-145); TOTAL CARBON DIOXIDE 23.2 MMOL/L (24-32); TOTAL PROTEIN 8.1 G/DL (6.4-8.2); eCRCL 39 ML/MIN; eGFR 54 ML/MIN
[2023-06-21 11:21] LABS: TOTAL CELLS COUNTED 100
[2023-06-21 11:22] LABS: PLATELET ESTIMATE NORMAL
[2023-06-21] MEDS ORDERED: iohexol 300mg/ml 100ml inj. ONE (12:02)
[2023-06-21] MEDS ORDERED: normal saline 1000ml 1,000 ML IV ONE (12:30)
[2023-06-21] MEDS ORDERED: DEC4T PO ×2 (14:50→14:59)
[2023-06-21] MEDS ORDERED: CEPH250T PO ×2 (14:51→14:59)
[2023-06-21 15:07] VITALS: BP 145/87; PULSE 78; RESP 17; O2SAT 93
[2023-06-23 12:48] LABS: HBSAG SCREEN Negative (Negative); HEP A AB, IGM Negative (Negative); HEP B CORE AB, IGM Negative (Negative); HEPATITIS C VIRUS ANTIBODY Non Reactive (Non Reactive)
== END 2023-06-21 15:11 | disposition home or self-care (01) ==
LOC: ER 07:57
DX: K75.9 Inflammatory liver disease, unspecified (principal); K80.80 Other cholelithiasis without obstruction; K40.90 Unilateral inguinal hernia, without obstruction or gangrene, not specified as recurrent; I11.0 Hypertensive heart disease with heart failure; Z79.899 Other long term (current) drug therapy
CPT/HCPCS: 36415; 71046; 71260; 74177; 80053; 80074; 80320; 82140; 83605; 83880; 84484; 85007; 85025; 85730; 87040; 87077; 87186; 87502; 87503; 93005; 94640; 96361; 96374; 99285; J2930; J3490; J7030; Q9967; 94760

== ENCOUNTER 2023-07-12 09:43 | Outpatient (CLI) | payer MEDICARE, OTHER ==
[~2023-07-12 09:43] MED LIST changes: +CEPH250T PO; +DEC4T PO
== END 2023-07-12 23:59 | disposition home or self-care (01) ==
LOC: RAD 09:43
PROVIDERS: ATTEND Family Medicine
DX: K80.20 Calculus of gallbladder without cholecystitis without obstruction (principal); R79.89 Other specified abnormal findings of blood chemistry
CPT/HCPCS: 76700

== ENCOUNTER 2023-08-12 09:16 | Emergency (ER) | payer MEDICARE, OTHER ==
[~2023-08-12] VITALS: Ht 170.2 cm; Wt 71.8 kg
[2023-08-12 09:22] VITALS: TEMP 97
[2023-08-12 10:41] LABS: HEMATOCRIT 45.8 % (42.0-52.0); HEMOGLOBIN 15.4 g/dl (14.0-17.9); MEAN CORPUSCULAR HEMOGLOBIN 31.2 PG (27.0-31.0); MEAN CORPUSCULAR HGB CONC 33.6 g/dL (33.0-36.5); MEAN CORPUSCULAR VOLUME 92.9 FL (78-98); MEAN PLATELET VOLUME 7.9 FL (7.4-10.4); PLATELET COUNT 269 X10'3 (140-440); RED BLOOD COUNT 4.93 X10'6 (4.70-6.10); RED CELL DISTRIBUTION WIDTH 13.5 % (11.5-14.5); WHITE BLOOD COUNT 9.5 X10'3 (4.5-11.0)
[2023-08-12 10:46] LABS: ALBUMIN 3.6 G/DL (3.4-5.0); ANION GAP 9 (8-16); BLOOD UREA NITROGEN 18 MG/DL (7-18); BUN/CREATININE RATIO 14.1 (10.0-20.0); CALCIUM 8.9 MG/DL (8.5-10.1); CHLORIDE 102 MMOL/L (99-107); CREATININE 1.28 MG/DL (0.60-1.10); GLUCOSE 104 MG/DL (70-104); MAGNESIUM 1.7 MG/DL (1.5-2.4); PRO BRAIN NATRIURETIC PEPTIDE 220 PG/ML (0-450); SODIUM 141 MMOL/L (135-145); TOTAL CARBON DIOXIDE 30.5 MMOL/L (24-32); eCRCL 39 ML/MIN; eGFR 53 ML/MIN
[2023-08-12 11:17] LABS: PLATELET ESTIMATE NORMAL; TOTAL CELLS COUNTED 100
[2023-08-12 12:48] LABS: BILIRUBIN,URINE NEGATIVE (Neg); CLARITY,URINE CLEAR (Clear); COLOR,URINE YELLOW (Yellow); GLUCOSE, URINE NEGATIVE (Neg); KETONES,URINE NEGATIVE (Neg); LEUKOCYTE ESTERASE ,URINE NEGATIVE (Neg); NITRITES, URINE NEGATIVE (Neg); OCCULT BLOOD,URINE NEGATIVE (Neg); PROTEIN,URINE NEGATIVE (Neg); UROBILINOGEN,URINE 0.2 E.U/dL (0.2-1.0)
[2023-08-12 12:50] LABS: UA COLLECTION TYPE VOIDED
[2023-08-12] MEDS: albuterol 2.5 MG/3 ML nebule NEB ONE (13:10)
[2023-08-12 13:11] VITALS: PULSE 68; RESP 18; O2SAT 95
[2023-08-12 13:29] VITALS: PULSE 62; RESP 18; O2SAT 99
[2023-08-12] MEDS: azithromycin 250mg tablet PO ONE (13:30)
[2023-08-12] MEDS ORDERED: PRED20TA PO (13:36)
[2023-08-12] MEDS ORDERED: AMOX-580 PO (13:36)
[2023-08-12] MEDS ORDERED: ALBU8HFA INH (13:37)
[2023-08-12] MEDS: methylPREDNISolone sod succ 125mg/2ml vial IV ONE (13:54)
[2023-08-12] MEDS: furosemide 40mg/4ml inj IV ONE (13:55)
[2023-08-12] MEDS: CefTRIAXone 2gm/D5W 50ml BAG 50 ML IV ONE (14:03)
[2023-08-12 14:27] VITALS: BP 144/85; PULSE 62; RESP 17; O2SAT 95
== END 2023-08-12 14:43 | disposition home or self-care (01) ==
LOC: ER 09:16
DX: R05.9 Cough, unspecified (principal); I11.0 Hypertensive heart disease with heart failure; I50.9 Heart failure, unspecified; J44.1 Chronic obstructive pulmonary disease with (acute) exacerbation; Z79.899 Other long term (current) drug therapy; Z79.2 Long term (current) use of antibiotics
CPT/HCPCS: 36415; 71045; 80048; 81003; 83605; 83735; 83880; 84484; 85007; 85025; 87040; 87070; 93005; 94640; 96365; 96375; 99285; J0696; J1940; J2930; 94760

== ENCOUNTER 2024-06-21 14:52 | Inpatient (IN) | payer MEDICARE, OTHER ==
[~2024-06-21] VITALS: Ht 170.2 cm; Wt 71.8 kg
[2024-06-21 16:42] LABS: BASOPHILS % (AUTO) 0.2 % (0-1); EOSINOPHILS % (AUTO) 0 % (0-6); HEMATOCRIT 44.4 % (42.0-52.0); HEMOGLOBIN 14.8 g/dl (14.0-17.9); LYMPHOCYTES # (AUTO) 0.5 X10'3 (1.1-4.8); LYMPHOCYTES % (AUTO) 3.7 % (21-51); MEAN CORPUSCULAR HEMOGLOBIN 30.9 PG (27.0-31.0); MEAN CORPUSCULAR HGB CONC 33.3 g/dL (33.0-36.5); MEAN CORPUSCULAR VOLUME 92.7 FL (78-98); MONOCYTES # (AUTO) 0.5 X10'3 (0-0.9); MONOCYTES % (AUTO) 3.4 % (2-12); NEUTROPHILS # (AUTO) 12.5 X10'3 (1.8-7.7); NEUTROPHILS % (AUTO) 92.7 % (42-75); PLATELET COUNT 238 X10'3 (140-440); RED BLOOD COUNT 4.78 X10'6 (4.70-6.10); RED CELL DISTRIBUTION WIDTH 13.9 % (11.5-14.5); WHITE BLOOD COUNT 13.5 X10'3 (4.5-11.0)
[2024-06-21] MEDS: ipratropium/albuterol 3ml nebule NEB ONE (16:48)
[2024-06-21 16:50] VITALS: PULSE 73; RESP 14; O2SAT 98
[2024-06-21 16:52] VITALS: PULSE 77; RESP 15
[2024-06-21 16:54] LABS: BILIRUBIN,URINE NEGATIVE (Neg); CLARITY,URINE SLIGHTLY CLOUDY (Clear); COLOR,URINE YELLOW (Yellow); GLUCOSE, URINE NEGATIVE (Neg); KETONES,URINE NEGATIVE (Neg); LEUKOCYTE ESTERASE ,URINE NEGATIVE (Neg); NITRITES, URINE NEGATIVE (Neg); OCCULT BLOOD,URINE NEGATIVE (Neg); PROTEIN,URINE 100 mg/dl (Neg); UROBILINOGEN,URINE 0.2 E.U/dL (0.2-1.0)
[2024-06-21 16:58] LABS: ALANINE AMINOTRANSFERASE 25 U/L (12-78); ALBUMIN/GLOBULIN RATIO 1.3 (1.1-1.5); ALKALINE PHOSPHATASE 72 IU/L (46-116); ANION GAP 8 (8-16); ASPARTATE AMINO TRANSFERASE 8 U/L (10-37); BILIRUBIN,TOTAL 0.5 MG/DL (0.1-1.0); BLOOD UREA NITROGEN 18 MG/DL (7-18); CALCIUM 9.1 MG/DL (8.5-10.1); CHLORIDE 99 MMOL/L (99-107); GLUCOSE 110 MG/DL (70-104); POTASSIUM 4.1 MMOL/L (3.5-5.1); SODIUM 138 MMOL/L (135-145); TOTAL CARBON DIOXIDE 31.5 MMOL/L (24-32); eCRCL 48 ML/MIN; eGFR 71 ML/MIN
[2024-06-21 17:02] LABS: UA COLLECTION TYPE NON-SPECIFIED
[2024-06-21 17:03] LABS: BACTERIA,URINE 4+ /HPF (Neg); MUCUS STRANDS NONE SEEN /LPF (Neg); RBC,URINE NONE SEEN /HPF (0-2); SQUAMOUS EPITHELIAL CELL,UR NONE SEEN /LPF (FEW); WBC,URINE 0-4 /HPF (0-4)
[2024-06-21] MEDS: methylPREDNISolone sod succ 125mg/2ml vial IV ONE (17:05)
[2024-06-21] MEDS: furosemide 10 MG/1 ML 10ml inj IV ONE (17:42)
[2024-06-21 18:09] LABS: PRO BRAIN NATRIURETIC PEPTIDE 421 PG/ML (0-450)
[2024-06-21] MEDS: albuterol 2.5 MG/3 ML nebule NEB ONE (18:35)
[2024-06-21 18:38] VITALS: PULSE 89; RESP 18; O2SAT 96
[2024-06-21 18:44] VITALS: RESP 18; O2SAT 98
[2024-06-21] MEDS ORDERED: ipratropium/albuterol 3ml nebule NEB PRN (19:55)
[2024-06-21] MEDS ORDERED: acetaminophen 325mg tablet PO PRN (19:55)
[2024-06-21] MEDS ORDERED: mag hydrox/Alum hydrox/simeth 30ml oral suspension PO PRN (19:55)
[2024-06-21] MEDS ORDERED: magnesium hydroxide 30ml (MOM) UD suspension PO PRN (19:55)
[2024-06-21] MEDS ORDERED: ondansetron/PF 4mg/2ml inj IV PRN (19:55)
[2024-06-21] MEDS ORDERED: magnesium sulf-water 4G/100mL 100 ML IV PRN (19:55)
[2024-06-21] MEDS ORDERED: albuterol 2.5 MG/3 ML nebule NEB PRN (19:55)
[2024-06-21] MEDS ORDERED: potassium Cl 40MEQ/1/2NS 520ml 520 ML IV PRN (19:55)
[2024-06-21] MEDS ORDERED: magnesium sulf-water 2g/50mL 50 ML IV PRN (19:55)
[2024-06-21] MEDS ORDERED: potassium Cl 20 mEq SR tablet PO PRN ×2 (19:55)
[2024-06-21] MEDS ORDERED: magnesium Cl slow-release 64mg tablet PO PRN (19:55)
[2024-06-21] MEDS: K and/or MAG REPLACEMENT MC SCH (20:00)
[2024-06-21] MEDS: docusate sod 100mg capsule PO SCH (20:00)
[2024-06-21 20:24] LABS: APTT 24 SECONDS (22-32); PROTHROMBIN TIME 10.9 SECONDS (9.0-12.0)
[2024-06-21] MEDS ORDERED: IPRA3AMP31 IH (20:31)
[2024-06-21 20:32] LABS: HEMOGLOBIN A1C 5.3 % (4.5-6.2)
[2024-06-21] MEDS ORDERED: ASPI-1265 PO (20:32)
[2024-06-21] MEDS ORDERED: ADV50500 IH (20:32)
[2024-06-21] MEDS ORDERED: FURO-150 PO (20:33)
[2024-06-21] MEDS ORDERED: MIRT-142 PO (20:34)
[2024-06-21] MEDS ORDERED: UMEC1DIS INH (20:35)
[2024-06-21] MEDS ORDERED: FLO0.4C PO (20:35)
[2024-06-21] MEDS: losartan 50mg tablet PO SCH (20:46)
[2024-06-21] MEDS ORDERED: hydrALAZINE 20mg/ml inj. IV PRN (21:50)
[2024-06-22] VITALS (9 sets, daily range): BP systolic 130–170; BP diastolic 76–83; PULSE 71–97; RESP 16–21; TEMP 97.5–97.7; O2SAT 95–98
[2024-06-22 03:13] LABS: BASOPHILS % (AUTO) 0.2 % (0-1); EOSINOPHILS % (AUTO) 0 % (0-6); HEMATOCRIT 46.7 % (42.0-52.0); HEMOGLOBIN 15.4 g/dl (14.0-17.9); LYMPHOCYTES # (AUTO) 0.4 X10'3 (1.1-4.8); LYMPHOCYTES % (AUTO) 2.3 % (21-51); MEAN CORPUSCULAR HEMOGLOBIN 30.6 PG (27.0-31.0); MEAN CORPUSCULAR VOLUME 92.8 FL (78-98); MEAN PLATELET VOLUME 8.3 FL (7.4-10.4); MONOCYTES # (AUTO) 0.4 X10'3 (0-0.9); MONOCYTES % (AUTO) 2.1 % (2-12); NEUTROPHILS # (AUTO) 16.7 X10'3 (1.8-7.7); NEUTROPHILS % (AUTO) 95.4 % (42-75); PLATELET COUNT 276 X10'3 (140-440); RED BLOOD COUNT 5.04 X10'6 (4.70-6.10); RED CELL DISTRIBUTION WIDTH 14.2 % (11.5-14.5); WHITE BLOOD COUNT 17.4 X10'3 (4.5-11.0)
[2024-06-22 03:36] LABS: ALBUMIN 3.9 G/DL (3.4-5.0); ANION GAP 9 (8-16); BLOOD UREA NITROGEN 23 MG/DL (7-18); BUN/CREATININE RATIO 19.7 (10.0-20.0); CALCIUM 9.7 MG/DL (8.5-10.1); CHLORIDE 98 MMOL/L (99-107); CHOL/HDL RATIO 2.7 (0.00-4.99); CHOLESTEROL 182 MG/DL (0-200); CREATININE 1.17 MG/DL (0.60-1.10); GLUCOSE 152 MG/DL (70-104); HDL CHOLESTEROL 68 MG/DL (35-60); LDL CHOLESTEROL 99 MG/DL (50-100); POTASSIUM 4.3 MMOL/L (3.5-5.1); SODIUM 139 MMOL/L (135-145); TOTAL CARBON DIOXIDE 32.4 MMOL/L (24-32); TRIGLYCERIDES 41 MG/DL (20-135); eCRCL 41 ML/MIN; eGFR 59 ML/MIN
[2024-06-22] MEDS ORDERED: non-formulary drug (Umeclidinium Brm/Vilanterol Tr (Anoro Ellipta 62.5-25 Mcg INH) 1 PUFFS INH SCH (08:00)
[2024-06-22] MEDS: cholecalciferol (vitamin D3) 1,000 unit (25mcg) tablet PO SCH (08:17)
[2024-06-22] MEDS: amLODIPine 5mg tablet PO SCH (08:17)
[2024-06-22] MEDS: enoxaparin 40mg/0.4ml syringe SUBCUT SCH (08:17)
[2024-06-22] MEDS: buPROPion SR 150mg tablet PO SCH (08:17)
[2024-06-22] MEDS: magnesium oxide 400mg tablet PO SCH (08:18)
[2024-06-22] MEDS: multivitamins, therapeutics tablet PO SCH (08:18)
[2024-06-22] MEDS: methylPREDNISolone sod succ/PF 40mg inj. IV SCH (08:18)
[2024-06-22] MEDS: aspirin 81mg tab.chew PO SCH (08:18)
[2024-06-22] MEDS: tamsulosin 0.4mg capsule PO SCH (08:18)
[2024-06-22] MEDS: furosemide 40mg/4ml inj IV SCH (08:19)
[2024-06-22 09:05] LABS: CREATININE 1.48 MG/DL (0.60-1.10); SODIUM 140 MMOL/L (135-145); eCRCL 33 ML/MIN; eGFR 45 ML/MIN
[2024-06-22 09:35] LABS: OSMOLALITY 308 MOSM/K (280-300)
[2024-06-22] MEDS ORDERED: albuterol 2.5 MG/3 ML nebule NEB PRN (10:15)
[2024-06-22] MEDS: CefTRIAXone/D5W-Rocephin 1gm 50 ML IV SCH (10:15)
[2024-06-22] MEDS: ipratropium/albuterol 3ml nebule NEB SCH (10:49)
[2024-06-22] MEDS: normal saline 1000ml 1,000 ML IV ONE (10:50)
[2024-06-22] MEDS: azithromycin 250mg tablet PO SCH (10:57)
[2024-06-22] MEDS: metoprolol succinate 25mg (24-HOUR) SR. Tablet PO SCH (17:31)
[2024-06-22] MEDS: nitroGLYCERIN 0.4mg SUBLingual tab SL PRN (17:31)
[2024-06-22] MEDS: pravastatin 40mg tablet PO SCH (20:12)
[2024-06-22] MEDS: isosorbide mononitrate 30mg tab.SR.24H PO SCH (20:12)
[2024-06-23] VITALS (20 sets, daily range): BP systolic 114–141; BP diastolic 50–63; PULSE 58–69; RESP 16–28; TEMP 97.2–97.9; O2SAT 88–98
[2024-06-23 08:03] LABS: BASOPHILS % (AUTO) 0.1 % (0-1); EOSINOPHILS % (AUTO) 0 % (0-6); HEMATOCRIT 40.6 % (42.0-52.0); HEMOGLOBIN 13.3 g/dl (14.0-17.9); LYMPHOCYTES # (AUTO) 0.8 X10'3 (1.1-4.8); LYMPHOCYTES % (AUTO) 3.7 % (21-51); MEAN CORPUSCULAR HEMOGLOBIN 30.8 PG (27.0-31.0); MEAN CORPUSCULAR HGB CONC 32.9 g/dL (33.0-36.5); MEAN CORPUSCULAR VOLUME 93.6 FL (78-98); MEAN PLATELET VOLUME 8.9 FL (7.4-10.4); MONOCYTES # (AUTO) 1.1 X10'3 (0-0.9); NEUTROPHILS # (AUTO) 20.1 X10'3 (1.8-7.7); NEUTROPHILS % (AUTO) 91.2 % (42-75); PLATELET COUNT 280 X10'3 (140-440); RED BLOOD COUNT 4.34 X10'6 (4.70-6.10); RED CELL DISTRIBUTION WIDTH 14.2 % (11.5-14.5)
[2024-06-23 08:22] LABS: ALBUMIN 2.9 G/DL (3.4-5.0); ANION GAP 9 (8-16); BLOOD UREA NITROGEN 46 MG/DL (7-18); BUN/CREATININE RATIO 41.1 (10.0-20.0); CALCIUM 8.8 MG/DL (8.5-10.1); CHLORIDE 99 MMOL/L (99-107); CREATININE 1.12 MG/DL (0.60-1.10); GLUCOSE 117 MG/DL (70-104); POTASSIUM 4.3 MMOL/L (3.5-5.1); SODIUM 135 MMOL/L (135-145); TOTAL CARBON DIOXIDE 26.7 MMOL/L (24-32); eCRCL 43 ML/MIN; eGFR 62 ML/MIN
[2024-06-23] MEDS: metoprolol succinate 25mg (24-HOUR) SR. Tablet PO SCH (09:03)
[2024-06-23] MEDS ORDERED: atorvastatin 10mg tablet PO SCH (13:51)
[2024-06-23] MEDS: atorvastatin 10mg tablet PO SCH (19:55)
[2024-06-23] MEDS ORDERED: guaiFENesin 200 MG/10 ML oral syrup UD cup PO PRN (20:30)
[2024-06-23] MEDS: guaiFENesin ER 600mg tablet PO SCH (20:41)
[2024-06-23] MEDS: HALLS - SOOTHE MENTHOL 1.8 MG cough drop LOZENGE MM PRN (22:38)
[2024-06-24] VITALS (12 sets, daily range): BP systolic 128–145; BP diastolic 55–67; PULSE 56–68; RESP 16–20; TEMP 97.2–98.6; O2SAT 91–97
[2024-06-24 06:31] LABS: BASOPHILS % (AUTO) 0.2 % (0-1); EOSINOPHILS % (AUTO) 0 % (0-6); HEMATOCRIT 39.2 % (42.0-52.0); HEMOGLOBIN 13.3 g/dl (14.0-17.9); LYMPHOCYTES # (AUTO) 0.6 X10'3 (1.1-4.8); LYMPHOCYTES % (AUTO) 2.7 % (21-51); MEAN CORPUSCULAR HEMOGLOBIN 31.1 PG (27.0-31.0); MEAN CORPUSCULAR HGB CONC 33.9 g/dL (33.0-36.5); MEAN CORPUSCULAR VOLUME 91.9 FL (78-98); MEAN PLATELET VOLUME 8.6 FL (7.4-10.4); MONOCYTES # (AUTO) 0.9 X10'3 (0-0.9); MONOCYTES % (AUTO) 4.2 % (2-12); NEUTROPHILS # (AUTO) 20.2 X10'3 (1.8-7.7); NEUTROPHILS % (AUTO) 92.9 % (42-75); PLATELET COUNT 267 X10'3 (140-440); RED BLOOD COUNT 4.27 X10'6 (4.70-6.10); RED CELL DISTRIBUTION WIDTH 13.8 % (11.5-14.5)
[2024-06-24 06:40] LABS: ALBUMIN 3.1 G/DL (3.4-5.0); ANION GAP 8 (8-16); BLOOD UREA NITROGEN 53 MG/DL (7-18); BUN/CREATININE RATIO 40.8 (10.0-20.0); CALCIUM 8.8 MG/DL (8.5-10.1); CHLORIDE 96 MMOL/L (99-107); GLUCOSE 122 MG/DL (70-104); MAGNESIUM 2.1 MG/DL (1.5-2.4); POTASSIUM 4.4 MMOL/L (3.5-5.1); SODIUM 130 MMOL/L (135-145); TOTAL CARBON DIOXIDE 26.2 MMOL/L (24-32); eCRCL 37 ML/MIN; eGFR 52 ML/MIN
[2024-06-24 07:02] LABS: WHITE BLOOD COUNT 21.8 X10'3 (4.5-11.0)
== END 2024-06-24 17:37 | DRG 871 ==
LOC: ER 14:52 → ED HOLD 20:04 → PCU 3S 06-22 17:03
PROVIDERS: ADMIT Internal Medicine Critical Care Medicine; ATTEND Family Medicine
DX: A41.9 Sepsis, unspecified organism (principal); I50.33 Acute on chronic diastolic (congestive) heart failure; J96.01 Acute respiratory failure with hypoxia; J15.9 Unspecified bacterial pneumonia; J15.69 Pneumonia due to other Gram-negative bacteria; I16.1 Hypertensive emergency; Z20.822 Contact with and (suspected) exposure to COVID-19; I25.118 Atherosclerotic heart disease of native coronary artery with other forms of angina pectoris; I11.0 Hypertensive heart disease with heart failure; I48.91 Unspecified atrial fibrillation; Z79.82 Long term (current) use of aspirin; Z79.899 Other long term (current) drug therapy; Z95.1 Presence of aortocoronary bypass graft
CPT/HCPCS: 36415; 71045; 80048; 80053; 80061; 81001; 82565; 83036; 83605; 83735; 83880; 83930; 84145; 84295; 84484; 85025; 85610; 85730; 87077; 87081; 87088; 87186; 87502; 87503; 87811; 93005; 93306; 94640; 94664; 94760; 97116; 97161; 97530; 99291; A4615; G0378; J0696; J1650; J1940; J2919; J7030